=== PATIENT | female | born 1980 | race Caucasian/White ===

== ENCOUNTER 2019-11-28 23:30 | Emergency (ER) | payer BC, SELFPAY ==
--- NOTE | ~2019-11-28 | XR_ITS ---
EXAMINATION: XR hand LT min 3V DATE: 11/29/2019 00:52 INDICATION: Left hand pain. Fall. TECHNIQUE: 3 views of left hand were obtained. COMPARISON: None. FINDINGS: There is a comminuted fracture of metaphysis of proximal third proximal phalanx. The main d istal fracture fragment demonstrates one cortical width dorsal displacement and 31 degrees dorsal ang ulation. There is a comminuted fracture of metaphysis of proximal fourth proximal phalanx. The main d istal fracture fragment demonstrates 40 degrees dorsal angulation and impaction. Joint spaces are nor mal. IMPRESSION: 1. Comminuted fractures of the third and fourth proximal phalanges. Reviewed, dictated and finalized at location A.
[2019-11-28 23:37] VITALS: BP 117/96; PULSE 96; RESP 20; TEMP 36.3; O2SAT 100
--- NOTE | 2019-11-28 23:57 | ED.UPPEXIN ---
HPI - Extremity Injury (Upper) General Chief Complaint: Extremity Injury, Upper Stated Complaint: finger injury Time Seen by Provider: 11/28/19 23:45 Source: patient Mode of arrival: ambulatory Limitations: no limitations History of Present Illness HPI narrative: This is a 39 year old female that presents to the ER for left hand pain after a fall today. Reports her daughter was doing handstands in the garage and she joined in. Reports she lost her balance and fell and injured her left 3rd-5th fingers. Reports pain and decreased ROM to the area. Reports she did hit her head on the floor when she came down. Denies loss of consciousness, vision changes, vomiting, numbness or weakness. Related Data Home Medications Medication Instructions Recorded Confirmed atorvastatin 11/29/19 brexpiprazole [Rexulti] mg 11/29/19 dextroamphetamine-amphetamine PO 11/29/19 ergocalciferol (vitamin D2) 11/29/19 ergocalciferol (vitamin D2) 11/29/19 [Vitamin D2] hydrochlorothiazide 11/29/19 levothyroxine 11/29/19 losartan 11/29/19 metformin mg 11/29/19 ropinirole mg 11/29/19 sertraline mg 11/29/19 Allergies Allergy/AdvReac Type Severity Reaction Status Date / Time Penicillins Allergy Unknown Hives Verified 11/28/19 23:50 Review of Systems Review of Systems: Narrative: CONSTITUTIONAL: Denies fever EYES: Denies visual changes GASTROINTESTINAL: Denies vomiting MUSCULOSKELETAL: Reports joint pain, and myalgia. NEUROLOGIC: Denies headache, numbness, or weakness. All systems reviewed & are unremarkable except as noted in HPI and below PMFSH Past Medical History Medical History (Updated 11/29/19 @ 02:15 by Zenaida Pham PA-C) History of diabetes mellitus History of hyperlipidemia History of hypertension History of hypothyroidism Family History Family History (Updated 06/17/18 @ 08:17 by DOCTOR UNKNOWN) Mother Depression Cerebrovascular accident Social History Social History Smoking status: Former smoker Smoking end date: 08/30/15 Gender identity (if verbalized by the patient): Female Exam Narrative: Exam Narrative: GENERAL: Well-appearing, well-nourished, and in no acute distress. HEAD: Normocephalic, atraumatic. EYES: PERRLA and EOMI. ENT: Nares clear, no rhinorrhea or epistaxis. Mucous membranes moist. Oropharynx without tonsillar hypertrophy exudate or other lesions. Bilateral TMs pearly garner non-bulging NECK: Supple. No adenopathy or masses. No midline spinal tenderness CHEST: Clear to auscultation. No respiratory distress. No wheezes rales or rhonchi HEART: Regular rate and rhythm. No murmur heard. Normal peripheral pulses. EXTREMITIES: Decreased ROM and pain to the left 3rd-5th fingers SKIN: Warm, dry, no rash. NEURO: No focal deficits. Alert and oriented x3. Cranial nerves II through XII grossly intact. Normal heel to franco PSYCH: Normal mood and affect Course Vital Signs Vital signs: Vital Signs Temperature 97.3 F L 11/28/19 23:37 Pulse Rate 96 11/28/19 23:37 Respiratory Rate 20 11/28/19 23:37 Blood Pressure 117/96 H 11/28/19 23:37 Pulse Oximetry 100 11/28/19 23:37 Temperature 97.3 F L 11/28/19 23:37 Pulse Rate 94 11/29/19 02:23 Respiratory Rate 17 11/29/19 02:23 Blood Pressure 125/82 11/29/19 02:23 Pulse Oximetry 98 11/29/19 02:23 MDM - Extremity Injury (Upper) MDM Narrative Medical decision making narrative: Patient presents to the emergency department for left hand pain after a fall today. Does report hitting her head. Denies loss of consciousness, vision changes, vomiting, or numbness. Patient is neurologically intact. Left hand x-ray shows comminuted fractures of the third and fourth proximal phalanx. Attempted at reduction of 4th finger, was unable to reduce successfully. Was slipping back out of place. She was placed in a splint. Spoke with Dr. Holbrook about patient and workup who will follow up in clinic Imaging Data My impression: Judi
[2019-11-29 02:23] VITALS: BP 125/82; PULSE 94; RESP 17; O2SAT 98
== END 2019-11-29 02:30 | disposition home or self-care (01) ==
PROVIDERS: Emergency Provider Emergency Medicine
DX: S62.613A Displaced fracture of proximal phalanx of left middle finger, initial encounter for closed fracture (principal); S62.615A Displaced fracture of proximal phalanx of left ring finger, initial encounter for closed fracture; W19.XXXA Unspecified fall, initial encounter; Z87.891 Personal history of nicotine dependence; E11.9 Type 2 diabetes mellitus without complications; E78.5 Hyperlipidemia, unspecified; I10 Essential (primary) hypertension; E03.9 Hypothyroidism, unspecified
CPT/HCPCS: 29125; 73130; 99284; A9270

== ENCOUNTER 2020-01-10 14:33 | Outpatient (CLI) | payer BC, SELFPAY ==
--- NOTE | ~2020-01-10 | XR_ITS ---
XR hand LT min 3V DATE: 01/10/2020 14:52 INDICATION: Displaced fractures of third and fourth proximal phalanges TECHNIQUE: 3 views COMPARISON: 11/29/2019 left hand FINDINGS: There is no significant change in position or alignment at comminuted fractures of the prox imal phalanges of the third and fourth digits since 11/29/2019 there is some sclerosis and new bone for mation compatible with healing. No other fracture or dislocation is evident. IMPRESSION: Healing fractures of the proximal phalanges of the third and fourth digits Reviewed, dictated and finalized at location A.
== END 2020-01-10 14:34 | disposition home or self-care (01) ==
PROVIDERS: Visit Provider Plastic Surgery
DX: S62.612D Displaced fracture of proximal phalanx of right middle finger, subsequent encounter for fracture with routine healing (principal); S62.614D Displaced fracture of proximal phalanx of right ring finger, subsequent encounter for fracture with routine healing
CPT/HCPCS: 73130

== ENCOUNTER 2024-09-26 14:57 | Outpatient (CLI) | payer OTHER, SELFPAY ==
--- NOTE | ~2024-09-26 | MM_ITS ---
EXAMINATION: MM screening chika BI w garcia HISTORY: Screening TECHNIQUE: Craniocaudal and mediolateral oblique 3-D tomosynthesis images were obtained and synthetic 2-D images were generated. CAD analysis was submitted and interpreted. COMPARISON: No prior mammogram is available for comparison at this institution. BREAST PARENCHYMAL COMPOSITION: Dense: The breasts are heterogeneously dense, which may obscure small masses FINDINGS: In the upper outer quadrant of the right breast there is a spiculated mass with architectur al distortion. In the outer aspect of the left breast on CC view, posterior third there is an obscure d mass, not well visualized on MLO view. There are bilateral symmetric axillary lymph nodes. There ar e no suspicious calcifications. There are focal asymmetries inferiorly in the right breast on MLO vie w. IMPRESSION: 1. Spiculated right breast mass upper outer quadrant. Focal asymmetries inferiorly in the right breas t on MLO view. Obscured mass lateral aspect of the left breast on CC view posteriorly. 2. Additional mammographic views and possible breast ultrasound are recommended. BI-RADS Category 0: Incomplete: Needs additional imaging evaluation. Reviewed, dictated and finalized at location A. 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 Spiculated right breast mass upper outer quadrant. Focal asymmetries inferio rly in the right breast on MLO view. Obscured mass lateral aspect of the left b reast on CC view posteriorly. 2. Additional mammographic views and possible breast ultrasound are recommended . BI-RADS Category 0: Incomplete: Needs additional imaging evaluation.
== END 2024-09-26 14:58 | disposition home or self-care (01) ==
LOC: MICIMG 14:58
PROVIDERS: PCP Obstetrics & Gynecology; Visit Provider Obstetrics & Gynecology
DX: Z12.31 Encounter for screening mammogram for malignant neoplasm of breast (principal); R92.8 Other abnormal and inconclusive findings on diagnostic imaging of breast
CPT/HCPCS: 77063; 77067

== ENCOUNTER 2024-10-12 08:28 | Outpatient (CLI) | payer OTHER, SELFPAY ==
--- NOTE | ~2024-10-12 | MMUS_ITS ---
EXAMINATION: MM diagnostic chika BI w garcia, US breast BI complete HISTORY: Follow-up bilateral breast masses. TECHNIQUE: Additional 3-D tomosynthesis images of the breasts were performed and synthetic 2-D images were generated. CAD analysis was submitted and interpreted. High resolution complete bilateral breas t ultrasound was performed. COMPARISON: 09/26/2024 BREAST PARENCHYMAL COMPOSITION: Dense: The breasts are heterogeneously dense, which may obscure small masses FINDINGS: MAMMOGRAPHIC FINDINGS: In the upper outer quadrant of the right breast, middle third there is a spiculated mass which is per sistent with spot compression and mediolateral views. In the upper outer quadrant of the left breast, posterior third there is an obscured mass. There are no suspicious calcifications in either breast. ULTRASOUND: Complete US of all 4 quadrants of the breast/s and retroareolar region was reviewed. Right breast: At 12:00, 6 cm from the nipple there is an indistinct heterogeneous predominantly hypoe choic mass with marginal vascularity measuring 1.2 x 0.7 cm. There is posterior shadowing. Left breast: At 1:00, 4 cm from the nipple there is a slightly irregular shaped oval hypoechoic mass measuring 1.3 x 1.1 x 0.7 cm without internal vascularity or posterior features. IMPRESSION: 1. Bilateral breast masses. 2. Bilateral ultrasound-guided core biopsies recommended. BI-RADS category 5, highly suggestive of malignancy. Reviewed, dictated and finalized at location [] D CLERK IMPRESSION: 1. Bilateral breast masses. 2. Bilateral ultrasound-guided core biopsies recommended. BI-RADS category 5, highly suggestive of malignancy.
== END 2024-10-12 08:29 | disposition home or self-care (01) ==
LOC: MICIMG 08:28
PROVIDERS: PCP Obstetrics & Gynecology; Visit Provider Obstetrics & Gynecology
DX: R92.8 Other abnormal and inconclusive findings on diagnostic imaging of breast (principal); N63.15 Unspecified lump in the right breast, overlapping quadrants; N63.21 Unspecified lump in the left breast, upper outer quadrant
CPT/HCPCS: 76641; 77062; 77066; G0279